=== PATIENT | male | born 1965 | race Caucasian/White ===

== ENCOUNTER → 2024-04-24 15:29 | Outpatient (REF) | payer BC, SELFPAY | LOC: RCS 15:29 | PROVIDERS: ATTENDING PHYSICIAN Internal Medicine Interventional Cardiology; FAMILY PHYSICIAN Family Medicine | DX: R00.2 Palpitations (principal); R42 Dizziness and giddiness | CPT/HCPCS: 93306 ==

== ENCOUNTER 2024-05-30 08:27 | Day surgery (SDC) | payer BC, SELFPAY ==
[2024-05-14 10:34] VITALS: BMI 28.4
[2024-05-30] VITALS (14 sets, daily range): BP systolic 101–137; BP diastolic 70–90
[2024-05-30] MEDS: NSS 500 IV (08:56)
[2024-05-30] MEDS: TYLENOL 1000 MG PO (10:42)
[2024-05-30] MEDS: PEPCID 20 MG PO (11:11)
[2024-05-30 13:52] LABS: ACT-LR - POC 261 Seconds (116-155)
[2024-05-30 14:12] LABS: ACT-LR - POC 277 Seconds (116-155)
[2024-05-30 14:36] LABS: ACT-LR - POC 300 Seconds (116-155)
--- NOTE | 2024-05-30 15:26 | ITS.CL.ABL ---
[facility] - Ablation
Ablation
Procedure Report:
Primary Physician: Abdullahi Tijerina MD
Primary Operations Assistant: Fozia Whitehead MD
Procedure Date: 05/30/2024
Procedure
Electrophysiology Study with SVT ablation
Left atrial recording / pacing
IV drug for arrhythmia induction
Patient History
Is a pleasant 59-year-old male with a past medical history of GERD, mixed hyperlipidemia, palpitations who had symptomatic paroxysmal SVT noted on event monitor.
Method
After informed consent was obtained, the patient was brought to the EP lab in a post-absorptive, non-sedated state. A peripheral IV was in place. Continuous electrocardiography, blood pressure and pulse oximetry monitoring was initiated and
cardioversion / defibrillator electrodes were positioned on the chest in an AP orientation. A 'time-out' was called. Conscious sedation was administered with the assistance of the anesthesia services, and local anesthesia was given at the femoral
vein access sites.
Using modified Seldinger technique, vascular access was achieved (images saved to record) and sheaths were placed. Multipolar catheters were advanced to the coronary sinus, His bundle recording position, right ventricle, and high right atrium.
Following the determination of baseline conduction intervals, comprehensive EP study was performed. Pacing and recording from the RA, RV, HBE, and CS / LA was performed.
For arrhythmia details, see below.
Fluoroscopy time:
3.0 min; 8.31 mGy; DAP 1.1
Total RF time:
0 min
Estimated Blood Loss
5 mL
Complications
None
At the end of the procedure, all catheters and sheaths were removed and hemostasis was assured with figure of 8 suture for both groins. Protamine was given. The patient was returned to the recovery area in stable condition.
Access Sites:
Left Femoral Vein: 2 sheaths (7 Fr, 6 Fr)
Right Femoral Vein: 2 sheaths (9 Fr, 6 Fr)
Baseline Intervals:
Rhythm: SR
ND: 227 ms
AH: 122 ms
HV: 63 ms
QRS: 92 ms
QT: 382 ms
QTc: 409 ms
A-A: 847 ms
R-R: 847 ms
Post-Procedure Intervals:
Rhythm: SR
ND: 212 ms
AH: 118 ms
HV: 58 ms
QRS: 70 ms
QT: 378 ms
AV Conduction:
- AVWB at 460 msec
- No VA conduction was noted
Refractory Periods
- AVNERP: 600/370 ms
Procedure Synopsis:
The patient entered the room in sinus rhythm. Following axis and catheter placement as noted above, baseline measurements performed and EP study performed. Patient did not possess VA conduction. During atrial extrastimuli with decremental
conduction, narrow complex concentrically activated tachycardia at 400 ms was noted. Tachycardia appeared to be 2: 1 AV conduction. Given lack of VA conduction, overdrive pacing was not performed. Atrial burst pacing terminated tachycardia and
reinduced spontaneously. HRA catheter was removed and HD grid was introduced. Heparin provided. Mapping of the right atrium and tachycardia demonstrated a focal AT arising from the norman terminalis. At spot of earliest activation, a unipolar QS
pattern was noted which was 25 to 30 ms pre-P wave. HD grid was removed and Tacticath D/F SE irrigated catheter was introduced. Catheter was placed at spot of earliest activation. Tachycardia was easily terminated by 'bump' termination at spot of
earliest activation as well as with overdrive pacing. Pacing from ablation distal demonstrated phrenic capture. Pacing in the surrounding area of norman terminalis also demonstrated phrenic capture. Given proximity to phrenic nerve with pacing,
ablation was not performed. Catheters were removed and hemostasis was assured as noted above.
Recommendations
- Ok for same day discharge if patient meeting clinical metrics
- Bedrest with straight-leg precautions
- Continue home medications as indicated
- Follow-up in office as scheduled for further discussion regarding next steps for AT
Celestine Daley DO, FACC
Clinical Cardiac Electrophysiology
cc: Abdullahi Tijerina MD; Fozia Whitehead MD
== END 2024-05-30 19:02 | disposition home or self-care (01) ==
LOC: CATH 08:27
PROVIDERS: ATTENDING PHYSICIAN Internal Medicine Cardiovascular Disease; FAMILY PHYSICIAN Family Medicine
DX: I47.10 Supraventricular tachycardia, unspecified (principal); R00.2 Palpitations; E78.2 Mixed hyperlipidemia; K21.9 Gastro-esophageal reflux disease without esophagitis
CPT/HCPCS: 93620; C1732; C1730; C1894; C2630; C1892; 76937; 85347; 86850; 86900; 86901; 93005; 93621; 93623

== ENCOUNTER 2024-11-08 00:49 | Emergency (ER) | payer BC, SELFPAY ==
[2024-11-08] VITALS (7 sets, daily range): BP systolic 107–131; BP diastolic 72–83; BMI 29.2
[2024-11-08 01:54] LABS: Hematocrit 42.4 % (39.0-52.0); Hemoglobin 14.3 g/dL (13.0-18.0); Mean Corp Hgb Conc. 33.7 g/dL (33.0-37.0); Mean Corpuscular Volume 84.8 fL (80.0-94.0); Nucleated Red Blood Cells % 0 % (-); Platelet Count 192 10^3/uL (130-400); Red Cell Dist. Width 13.3 % (11.5-14.5)
[2024-11-08 02:05] LABS: APTT 26.4 Sec (23.4-35.0); INR 1.03; PT 13.8 Sec (11.4-14.6)
[2024-11-08 02:15] LABS: ALT (SGPT) 23 U/L (0-50); AST (SGOT) 29 U/L (17-59); Albumin 4.3 g/dl (3.5-5.0); Alkaline Phosphatase 60 U/L (38-126); Blood Urea Nitrogen 12 mg/dl (9-20); Calcium 9.1 mg/dl (8.4-10.2); Carbon Dioxide 30 mmol/L (22-30); Chloride 105 mmol/L (98-107); Estimated Creatinine Clearance 99 ml/min; Glucose 149 mg/dl (70-99); Potassium 4.1 mmol/L (3.5-5.1); Sodium 139 mmol/L (135-145); Total Protein 6.9 g/dl (6.3-8.2); eGFR > 60.00
[2024-11-08 02:27] LABS: Troponin I < 0.012 ng/ml
--- NOTE | 2024-11-08 02:31 | ED.GENMED ---
History of Present Illness
General
Chief Complaint: Chest Pain
Source: patient
Exam Limitations: none
Time Seen by Provider: 11/08/24 01:21
Nursing documentation reviewed up to this point in time: agreed with
History of Present Illness
History of Present Illness:
Patient presents to ED secondary to sudden onset of dizziness with cold sweats and nausea sensation, shortly after returning from walking outside for approximately half hour around his neighborhood. Patient has had similar symptoms in the past,
secondary to vertigo. However, approximately half hour after onset of dizziness, patient also started to experience left-sided chest pain. Chest pain described as pressure, with radiation to left arm. Denies associated shortness of breath.
Denies back pain. Denies leg pain or swelling. Denies recent travel or surgery. Denies denies previous history of similar chest pain with associated left discomfort. Denies family history of heart disease. Patient has had history of ventricular
tachycardia, requiring ablation.
Past History
Past History
ED Past Medical History: Other (Cervical disc disease, lumbar disc disease)
ED Past Surgical History: Appendectomy
Social History
Tobacco: Non-smoker
Alcohol: None
Drug: None
Personal:
Living: with family
Employment: Employed
Family History
Family History: Other (Noncontributory)
Review of Systems
Review of Systems
Allergies reviewed?: Yes
All Other Systems: ROS reviewed and negative except as documented in HPI and ROS
Constitutional: Reports no symptoms
Respiratory: Reports no symptoms
Cardiac: Reports chest pain and diaphoresis
ABD/GI: Reports nausea
Musculoskeletal: Reports no symptoms
Skin: Reports no symptoms
Neurological: Reports dizzy
Phy Exam
Physical Exam
Physical Exam:
Physical Exam
General: no apparent distress, not acutely ill. afebrile
Head: nc/at. eomi. left horizontal nystagmus noted.
Neck: supple. no meningeal signs.
Heart: s1/s2 regular rate and rhythm, no murmur.
Lungs: no acute respiratory distress. clear bilaterally
Abdomen: normal bowel sounds. not tender.
Neuro: alert and oriented x 3. no focal neurological deficits
Skin: no rash
Psychiatric: well kept. interactive and cooperative
Extremities: no edema. no calf tenderness.
Scores
Heart Score for Chest Pain Patients
STEMI patient?: No
History: Slightly or Non-Suspicious
ECG: Normal
Age: >45 - <65 years
Risk Factors: No Risk Factors
Troponin: </= Normal Limit
Heart Score for Chest Pain Patients: 1
Heart Score Risk: 2.5% MACE over next 6 weeks
Course
Orders/Labs/Results
Orders:
Orders
11/08/24 00:51
EKG [Electrocardiogram (*1)] Urgent
Reason for Study: Chest Pain
EKG- Treatment ONCE
11/08/24 01:37
Complete Blood Count/With Diff Urgent
Comprehensive Metabolic Panel Urgent
PTT Urgent
Prothrombin Time Urgent
Troponin I Urgent
11/08/24 03:21
EKG- Treatment ONCE
11/08/24 05:00
Electrocardiogram (*1) Urgent
Reason for Study: Chest Pain
Troponin I Urgent
Abnormal Lab Results
11/08/24
01:37
Absolute Lymphs (auto) 1.0 L 10^3/uL
(1.2-3.4)
Neutrophils % 79.4 H %
(42.2-75.2)
Lymphocytes % 14.1 L %
(20.5-51.1)
Glucose 149 H mg/dl
(70-99)
11/08/24 01:37
11/08/24 01:37
Vital Signs
Initial and Last Documented VS:
Initial Vital Signs
Pulse Resp BP Pulse Ox
67 20 131/82 93
11/08/24 00:57 11/08/24 00:57 11/08/24 00:57 11/08/24 00:57
Last Documented Vital Signs
Pulse Resp BP Pulse Ox
59 14 114/81 94
11/08/24 05:45 11/08/24 05:45 11/08/24 05:00 11/08/24 05:45
MDM/Problems Addressed
MDM/Problems Addressed:
Patient with an unremarkable workup in ED, including blood work and EKG. Chest pain currently resolved spontaneously. As chest pain started at the peak of patient's extreme distress with dizziness and nausea, difficult to exclude symptoms as part
of his dizziness manifestation. Patient does not have any cardiac risk factors. As such, will repeat EKG with second troponin. If normal and patient remains symptom-free, patient will be discharged home with recommendation to follow-up with his
primary operations and maintenance supervisor, Dr. Daley as an outpatient. In addition, dizziness minimal without any focal neurological deficit. With horizontal nystagmus noted, symptoms likely vertiginous with improving symptoms. No indications for any imaging studies at
this time, but will warrant PCP f/u.
*Pulse Oximetry
SaO2: 100
Oxygen Mode of Delivery: Room air
Patient hypoxic: no
*EKG
Interpreted by ED Provider?: Yes
EKG Intrepretation Date: 11/08/24
Heart Rate: 65
Rate: normal
Rhythm: sinus
[place]: normal axis
Interval: normal interval
*Critical Care Note
Total Time (30-74mins, 75-104mins- exclusive of procedures): Not Applicable
Update Note
Update Note:
11/08/24 @ 5:05pm - called and spoke with patient. Pt hasn't had recurrent chest pain since leaving ED. However, does continue to express 'congestion' feeling in head without nausea/diaphoresis. Advised consider returning to ED if symptoms persist,
feels uncomfortable or worsening in any way, if especially associated with chest pain. Otherwise, pt advised to expect call from cardiology office for urgent outpatient evaluation with his primary operations and maintenance supervisor, .
ED Attending Note
-
Portions of this chart may have been created with voice recognition software.� Occasional wrong word or��sound alike� substitutions may have occurred due to the inherent limitations of voice recognition software.
Discharge Plan
Departure
Patient Disposition: Home (Routine Discharge)
Date of Disposition: 11/08/24
Time of Disposition: 05:55
Patient with high blood pressure during this ER visit?: Yes
Discharge Problem:
Dizziness, Chest pain
Instructions: Dizziness in adults - ED discharge instructions, Chest Pain DCA Follow Up
Prescriptions:
No Action
famotidine 20 mg Tablet
20 mg PO BID
metoprolol succinate 25 mg Capsule,Sprinkle,Er 24hr
12.5 mg PO DAILY
Referrals:
Abdullahi Tijerina Jr., DO [Family Provider, Internal Medicine]
Celestine Daley, [Active, Cardiology]
Activity Restrictions/Additional Instructions:
As discussed, please follow-up with your primary care physician and operations and maintenance supervisor for further evaluation and treatment. Please consider return to ED with worsening symptoms.
Interventions
Interventions:
*Risk Screen - Suicide Last Done: 11/08/24 00:57
*General Assessment Last Done: 11/08/24 00:57
*Neglect/Abuse Screening Last Done: 11/08/24 00:57
*ED- Fall Risk Assessment Last Done: 11/08/24 01:47
*ED COVID-19 Vaccine History Last Done: 11/08/24 01:47
*Nursing Disposition Last Done: 11/08/24 06:03
ED- Cardiac Assessment Last Done: 11/08/24 01:47
Discharge Date and Time
Discharge Date/Time: 11/08/24 06:04
Print Language: SPANISH
[2024-11-08 05:51] LABS: Troponin I < 0.012 ng/ml
== END 2024-11-08 06:04 | disposition home or self-care (01) ==
LOC: EMR 00:49
PROVIDERS: EMERGENCY PHYSICIAN Emergency Medicine; FAMILY PHYSICIAN Family Medicine
DX: R42 Dizziness and giddiness (principal); R07.89 Other chest pain; Z90.49 Acquired absence of other specified parts of digestive tract
CPT/HCPCS: 99284; 80053; 84484; 85025; 85610; 85730; 93005

== ENCOUNTER → 2024-12-18 11:49 | Outpatient (REF) | payer BC, SELFPAY | LOC: HWRCS 11:49 | PROVIDERS: ATTENDING PHYSICIAN Internal Medicine Cardiovascular Disease; FAMILY PHYSICIAN Family Medicine | DX: R07.89 Other chest pain (principal) | CPT/HCPCS: 78452; 93017; A9500 ==

== ENCOUNTER 2025-03-25 06:14 | Day surgery (SDC) | payer BC, SELFPAY | END 2025-03-25 10:19 | disposition home or self-care (01) | LOC: GI 06:14 | PROVIDERS: ATTENDING PHYSICIAN Student in an Organized Health Care Education/Training Program | DX: R12 Heartburn (principal); R14.0 Abdominal distension (gaseous); R07.89 Other chest pain; K44.9 Diaphragmatic hernia without obstruction or gangrene; K22.89 Other specified disease of esophagus; K20.90 Esophagitis, unspecified without bleeding; K31.89 Other diseases of stomach and duodenum | CPT/HCPCS: 43239; 88305; 88341; 88342 ==